=== PATIENT | female | born 1990 | race Caucasian/White ===

== ENCOUNTER → 2018-11-05 13:46 | Outpatient (CLI) | payer OTHER, SELFPAY ==
[2018-11-05 15:09] LABS: Absolute Lymphocyte Count 2.56 X10^3/ul (0.83-4.51); Absolute Neutrophil Count 3.8 X10^3/uL (2.0-7.7); Basophil# 0.02 X10^3/uL; Basophil% 0.3 % (0-1); Eosinophil# 0.47 X10^3/uL; Eosinophils% 6.3 % (0-5); Hematocrit 34.7 % (37-47); Hemoglobin 11.2 g/dl (12.0-15.0); Lymphocyte # 2.56 X10^3/ul (4.0); Lymphocyte % 34.5 % (19-41); Mean Corp Hgb Conc 32.3 g/gl (32-36); Mean Corpuscular Hgb 29.3 pg (27.0-32.0); Mean Corpuscular Volume 90.8 fL (81-99); Mean Platelet Vol. 10.5 fl (6.2-12.0); Monocyte# 0.53 X10^3/uL; Monocyte% 7.1 % (0-10); Neutrophil # 3.84 X10^3/uL (2.7-7.7); Neutrophil % 51.7 % (47-70); Platelet Count 314 K/mm3 (150-450); RBC Distribution Width CV 12.3 % (11.6-14.6); RBC Distribution Width SD 40.1 fl (35.1-43.9); Red Blood Count 3.82 M/mm3 (4.2-5.4); White Blood Count 7.4 K/mm3 (4.4-11.0)
[2018-11-05 15:12] LABS: POSITIVE COUNT NO; POSITIVE DIFFERENTIAL NO; POSITIVE MORPHOLOGY NO
[2018-11-05 15:39] LABS: ALB/GLOB Ratio 0.9 RATIO (0.9-2.4); AST(SGOT) 21 U/L (15-37); Alanine Aminotransfer ALT/SGPT 21 U/L (13-56); Albumin, Serum 3.6 g/dL (3.2-5.0); Alkaline Phosphatase 70 U/L (45-117); Anion Gap 9 (5-15); BUN 11 mg/dL (7-18); BUN/Creat Ratio 16.1 RATIO (10-20); Calcium,Total 8.8 mg/dL (8.5-10.1); Chloride 102 mmol/L (98-107); Creatinine, Serum 0.68 mg/dL (0.55-1.02); EST Glomerular Filtration Rate 109 mL/min (>60); Est Glom Filt Rate - Afr Amer 132 mL/min (>60); Glucose 98 mg/dL (74-106); Potassium 3.6 mmol/L (3.5-5.1); Protein, Total 7.6 g/dL (6.4-8.2); Sodium Level 136 mmol/L (136-145)
== END ==
PROVIDERS: Family Provider Family Medicine; PCP Family Medicine
DX: K62.5 Hemorrhage of anus and rectum (principal)
CPT/HCPCS: 36415; 80053; 85025

== ENCOUNTER → 2018-11-13 14:47 | Outpatient (CLI) | payer OTHER, SELFPAY ==
--- NOTE | 2018-11-13 14:52 | CT_ITS ---
STUDY: CT ABDOMEN AND PELVIS WITH CONTRAST REASON FOR EXAM: Female, 28 years old. Rectal bleeding for a couple of weeks RADIATION DOSAGE (If Supplied By Facility): CTDIvol = ( 7.84 ) mGy, DLP = ( 338.16 ) mGycm TECHNIQUE: Transaxial images were obtained from the dome of the diaphragm to the symphysis pubis without oral contrast. 100ml IV/Oral Isovue 300 was administered. Sagittal and coronal images were reconstructed. Individualized dose optimization techniques were used for this CT. COMPARISON: None. FINDINGS: The visualized lung bases are unremarkable. The visualized portions of the heart are within normal limits. Mild nonspecific fatty infiltration of liver without mass or bile duct dilatation.. Contracted thick-walled gallbladder without calcified stones possibly physiologic. Normal spleen. Normal pancreas. Normal bilateral adrenal glands. Normal right kidney. Normal left kidney. Normal visualized stomach. Normal small intestine. Diffuse fecal retention is noted within the colon.. There appears to be diffuse concentric thickening of the diaz of the rectum of uncertain etiology possibly due to nonspecific proctitis. The appendix is visualized and appears normal. Tiny benign-appearing pericecal nodes Normal abdominal aorta. Normal inferior vena cava. Normal retroperitoneum. Incompletely distended thick-walled bladder likely of no significance . There is air shadow within the vaginal vault likely representing temporal Minor cystic changes in the right ovary Normal abdominal wall. Normal osseous structures. CT/Abdomen/Pelvis WITH Contrast IMPRESSION: There appears to be nonspecific thickening of the diaz of the rectum which may be consistent with nonspecific proctitis. No evidence for small bowel obstruction.. Tagged red blood cell study may be useful for further evaluation if clinically warranted. Electronically Signed: Nils Aguila MD at 17:07 EDT , Service support ,
== END ==
PROVIDERS: Family Provider Family Medicine; PCP Family Medicine
DX: K62.5 Hemorrhage of anus and rectum (principal); D64.9 Anemia, unspecified
CPT/HCPCS: 74177; Q9967

== ENCOUNTER → 2019-06-05 14:18 | Outpatient (CLI) | payer OTHER, SELFPAY ==
[2019-06-05 10:12] VITALS: BMI 22.6
== END ==
PROVIDERS: Family Provider Family Medicine; PCP Family Medicine; Referring Provider Nurse Practitioner Family; Visit Provider Nurse Practitioner Family
DX: J02.9 Acute pharyngitis, unspecified (principal)
CPT/HCPCS: 87070; 87077

== ENCOUNTER → 2020-02-02 12:57 | Outpatient (CLI) | payer OTHER, SELFPAY ==
[2019-06-05 10:12] VITALS: BMI 22.6
[2020-02-02 13:13] LABS: Absolute Lymphocyte Count 2.36 X10^3/uL (0.83-4.51); Absolute Neutrophil Count 3.3 X10^3/uL (2.0-7.7); Basophil# 0.04 X10^3/uL; Basophil% 0.6 % (0-1); Hematocrit 35.5 % (37-47); Hemoglobin 11.2 g/dL (12.0-15.0); Lymphocyte # 2.36 X10^3/ul (4.0); Lymphocyte % 35.6 % (19-41); Mean Corp Hgb Conc 31.5 g/dL (32-36); Mean Corpuscular Hgb 30.4 pg (27.0-32.0); Mean Corpuscular Volume 96.2 fL (81-99); Mean Platelet Vol. 10.1 fl (6.2-12.0); Monocyte# 0.53 X10^3/uL; NRBC Flagged by Analyzer 0 % (0-5); Neutrophil # 3.28 X10^3/uL (2.7-7.7); Neutrophil % 49.6 % (47-70); Platelet Count 306 K/mm3 (150-450); RBC Distribution Width CV 12.1 % (11.6-14.6); RBC Distribution Width SD 42.4 fl (35.1-43.9); Red Blood Count 3.69 M/mm3 (4.2-5.4); White Blood Count 6.6 K/mm3 (4.4-11.0)
[2020-02-02 13:31] LABS: AST(SGOT) 19 U/L (15-37); Alanine Aminotransfer ALT/SGPT 21 U/L (13-56); Albumin, Serum 3.6 g/dL (3.2-5.0); Alkaline Phosphatase 69 U/L (45-117); Anion Gap 5 (5-15); BUN 11 mg/dL (7-18); CRP 5.73 mg/L (0.0-3.0); Calcium,Total 8.9 mg/dL (8.5-10.1); Chloride 103 mmol/L (98-107); Creatinine, Serum 0.65 mg/dL (0.55-1.02); EST Glomerular Filtration Rate 115 mL/min (>60); Est Glom Filt Rate - Afr Amer 139 mL/min (>60); Globulin 3.7 g/dL (2.2-4.2); Glucose 85 mg/dL (74-106); Potassium 3.7 mmol/L (3.5-5.1); Protein, Total 7.3 g/dL (6.4-8.2); Sodium Level 136 mmol/L (136-145)
== END ==
PROVIDERS: PCP Family Medicine
DX: K51.20 Ulcerative (chronic) proctitis without complications (principal)
CPT/HCPCS: 36415; 80053; 85025; 86140

== ENCOUNTER → 2021-02-28 08:58 | Outpatient (CLI) | payer OTHER, SELFPAY ==
[2019-06-05 10:12] VITALS: BMI 22.6
[2021-02-28 09:19] LABS: Absolute Lymphocyte Count 2.66 X10^3/uL (0.83-4.51); Absolute Neutrophil Count 3.3 X10^3/uL (2.0-7.7); Basophil# 0.02 X10^3/uL; Basophil% 0.3 % (0-1); Eosinophil# 0.34 X10^3/uL; Hematocrit 36.6 % (37-47); Hemoglobin 11.8 g/dL (12.0-15.0); Lymphocyte # 2.66 X10^3/ul (0.83-4.51); Lymphocyte % 39.3 % (19-41); Mean Corp Hgb Conc 32.2 g/dL (32-36); Mean Corpuscular Hgb 30.2 pg (27.0-32.0); Mean Corpuscular Volume 93.6 fL (81-99); Mean Platelet Vol. 10.3 fl (6.2-12.0); Monocyte# 0.44 X10^3/uL; Monocyte% 6.5 % (0-10); NRBC Flagged by Analyzer 0 % (0-5); Neutrophil # 3.29 X10^3/uL (2.7-7.7); Neutrophil % 48.8 % (47-70); Platelet Count 289 K/mm3 (150-450); RBC Distribution Width CV 12.3 % (11.6-14.6); RBC Distribution Width SD 42.5 fl (35.1-43.9); Red Blood Count 3.91 M/mm3 (4.2-5.4); White Blood Count 6.8 K/mm3 (4.4-11.0)
[2021-02-28 09:37] LABS: ALB/GLOB Ratio 0.9 RATIO (0.9-2.4); AST(SGOT) 16 U/L (15-37); Alanine Aminotransfer ALT/SGPT 22 U/L (13-56); Albumin, Serum 3.7 g/dL (3.2-5.0); Alkaline Phosphatase 66 U/L (45-117); Anion Gap 7 (5-15); BUN 16 mg/dL (7-18); BUN/Creat Ratio 23.4 RATIO (10-20); CRP 5.32 mg/L (0.0-3.0); Chloride 105 mmol/L (98-107); Creatinine, Serum 0.68 mg/dL (0.55-1.02); EST Glomerular Filtration Rate 107 mL/min (>60); Est Glom Filt Rate - Afr Amer 130 mL/min (>60); Ferritin 29 ng/mL (8-252); Globulin 3.9 g/dL (2.2-4.2); Glucose 79 mg/dL (74-106); Iron 113 ug/dL (50-170); Iron Binding Capacity,Total 463 ug/dL (250-450); Potassium 3.8 mmol/L (3.5-5.1); Protein, Total 7.6 g/dL (6.4-8.2); Sodium Level 138 mmol/L (136-145)
== END ==
PROVIDERS: PCP Family Medicine
DX: K62.5 Hemorrhage of anus and rectum (principal)
CPT/HCPCS: 36415; 80053; 82728; 83540; 83550; 85025; 86140

== ENCOUNTER → 2022-03-14 | Outpatient (CLI) | payer OTHER, SELFPAY ==
[2022-03-14 14:58] LABS: Absolute Lymphocyte Count 2.41 X10^3/uL (0.83-4.51); Absolute Neutrophil Count 5.8 X10^3/uL (2.0-7.7); Basophil# 0.03 X10^3/uL; Basophil% 0.3 % (0-1); Eosinophil# 0.12 X10^3/uL; Eosinophils% 1.3 % (0-5); Hematocrit 34.8 % (37-47); Hemoglobin 11.3 g/dL (12.0-15.0); Lymphocyte # 2.41 X10^3/ul (0.83-4.51); Lymphocyte % 26.9 % (19-41); Mean Corp Hgb Conc 32.5 g/dL (32-36); Mean Corpuscular Hgb 30.2 pg (27.0-32.0); Mean Platelet Vol. 10.1 fl (6.2-12.0); Monocyte% 6.7 % (0-10); NRBC Flagged by Analyzer 0 % (0-5); Neutrophil # 5.77 X10^3/uL (2.7-7.7); Neutrophil % 64.6 % (47-70); Platelet Count 284 K/mm3 (150-450); RBC Distribution Width CV 12.3 % (11.6-14.6); RBC Distribution Width SD 42.4 fl (35.1-43.9); Red Blood Count 3.74 M/mm3 (4.2-5.4)
[2022-03-14 15:28] LABS: ALB/GLOB Ratio 0.9 RATIO (0.9-2.4); AST(SGOT) 15 U/L (15-37); Alanine Aminotransfer ALT/SGPT 20 U/L (13-56); Albumin, Serum 3.5 g/dL (3.2-5.0); Alkaline Phosphatase 61 U/L (45-117); Anion Gap 3 (5-15); BUN 13 mg/dL (7-18); CRP 3.91 mg/L (0.0-3.0); Calcium,Total 9.3 mg/dL (8.5-10.1); Chloride 105 mmol/L (98-107); Creatinine, Serum 0.65 mg/dL (0.55-1.02); EST Glomerular Filtration Rate 113 mL/min (>60); Est Glom Filt Rate - Afr Amer 137 mL/min (>60); Glucose 98 mg/dL (74-106); Potassium 3.8 mmol/L (3.5-5.1); Protein, Total 7.5 g/dL (6.4-8.2); Sodium Level 137 mmol/L (136-145)
== END | disposition home or self-care (01) ==
PROVIDERS: PCP Family Medicine
DX: K51.20 Ulcerative (chronic) proctitis without complications (principal)
CPT/HCPCS: 36415; 80053; 85025; 86140

== ENCOUNTER → 2023-08-23 | Outpatient (CLI) | payer OTHER, SELFPAY ==
[2023-08-23 09:07] LABS: Absolute Lymphocyte Count 2.14 X10^3/uL (0.83-4.51); Absolute Neutrophil Count 2.4 X10^3/uL (2.0-7.7); Basophil# 0.04 X10^3/uL; Basophil% 0.8 % (0-1); Eosinophil# 0.28 X10^3/uL; Eosinophils% 5.3 % (0-5); Hematocrit 37.3 % (37-47); Hemoglobin 12.1 g/dL (12.0-15.0); Lymphocyte # 2.14 X10^3/ul (0.83-4.51); Lymphocyte % 40.7 % (19-41); Mean Corp Hgb Conc 32.4 g/dL (32-36); Mean Corpuscular Hgb 29.7 pg (27.0-32.0); Mean Corpuscular Volume 91.6 fL (81-99); Mean Platelet Vol. 10.2 fl (6.2-12.0); Monocyte% 7.6 % (0-10); NRBC Flagged by Analyzer 0 % (0-5); Neutrophil # 2.39 X10^3/uL (2.7-7.7); Neutrophil % 45.4 % (47-70); Platelet Count 273 K/mm3 (150-450); RBC Distribution Width CV 12.1 % (11.6-14.6); RBC Distribution Width SD 40.8 fl (35.1-43.9); Red Blood Count 4.07 M/mm3 (4.2-5.4); White Blood Count 5.3 K/mm3 (4.4-11.0)
[2023-08-23 09:27] LABS: AST(SGOT) 15 U/L (15-37); Alanine Aminotransfer ALT/SGPT 19 U/L (13-56); Albumin, Serum 3.8 g/dL (3.2-5.0); Alkaline Phosphatase 64 U/L (45-117); Anion Gap 4 (5-15); BUN 19 mg/dL (7-18); BUN/Creat Ratio 27.4 RATIO (10-20); CRP < 2.90 mg/L (0.0-3.0); Calcium,Total 9.4 mg/dL (8.5-10.1); Chloride 109 mmol/L (98-107); Creatinine, Serum 0.69 mg/dL (0.55-1.02); EST Glomerular Filtration Rate 104 mL/min (>60); Est Glom Filt Rate - Afr Amer 126 mL/min (>60); Globulin 3.8 g/dL (2.2-4.2); Glucose 96 mg/dL (74-106); Protein, Total 7.6 g/dL (6.4-8.2); Sodium Level 138 mmol/L (136-145)
== END | disposition home or self-care (01) ==
PROVIDERS: PCP Family Medicine
DX: K51.20 Ulcerative (chronic) proctitis without complications (principal); Z51.81 Encounter for therapeutic drug level monitoring
CPT/HCPCS: 36415; 80053; 85025; 86140

== ENCOUNTER → 2024-08-10 | Outpatient (CLI) | payer OTHER, SELFPAY ==
[2024-08-10 14:10] LABS: Absolute Lymphocyte Count 1.83 X10^3/uL (0.83-4.51); Basophil# 0.04 X10^3/uL; Basophil% 0.6 % (0-1); Eosinophil# 0.16 X10^3/uL; Eosinophils% 2.5 % (0-5); Hematocrit 37.7 % (37-47); Hemoglobin 12.2 g/dL (12.0-15.0); Lymphocyte # 1.83 X10^3/ul (0.83-4.51); Lymphocyte % 28.2 % (19-41); Mean Corp Hgb Conc 32.4 g/dL (32-36); Mean Corpuscular Hgb 29.8 pg (27.0-32.0); Mean Corpuscular Volume 92.2 fL (81-99); Mean Platelet Vol. 10.1 fl (6.2-12.0); Monocyte# 0.41 X10^3/uL; Monocyte% 6.3 % (0-10); NRBC Flagged by Analyzer 0 % (0-5); Neutrophil # 4.02 X10^3/uL (2.7-7.7); Neutrophil % 62.1 % (47-70); Platelet Count 281 K/mm3 (150-450); RBC Distribution Width CV 12.5 % (11.6-14.6); RBC Distribution Width SD 42.9 fl (35.1-43.9); Red Blood Count 4.09 M/mm3 (4.2-5.4); White Blood Count 6.5 K/mm3 (4.4-11.0)
== END | disposition home or self-care (01) ==
PROVIDERS: PCP Family Medicine
DX: R23.3 Spontaneous ecchymoses (principal)
CPT/HCPCS: 36415; 85025

== ENCOUNTER 2024-11-28 11:48 | Emergency (ER) | payer OTHER, SELFPAY ==
[2024-11-28 11:49] VITALS: BP 144/75; PULSE 78; RESP 16; TEMP 36.7; O2SAT 100; BMI 22.1
--- NOTE | 2024-11-28 11:57 | EX.ED.GENINJ ---
HPI <MITRA Henderson - Last Filed: 11/28/24 12:52> History of Present Illness Chief Complaint: Laceration Narrative Narrative: 34-year-old female was using a knife to remove an avocado pit when she accidentally cut her left thumb. She controlled the bleeding with direct pressure but presents for wound repair. No weakness numbness or tingling. Tetanus is up-to-date as of 1 year ago. PFSH <MITRA Henderson - Last Filed: 11/28/24 12:52> PFSH Home Medications ?Medication ?Instructions ?Recorded ?Last Taken ?Type drospirenone 3 mg-ethinyl 1 tab PO DAILY 06/05/19 Unknown History estradiol 0.03 mg tablet (Ocella) loratadine 10 mg tablet (Claritin) 10 mg PO DAILY 06/05/19 Unknown History mesalamine 1.2 gram tablet,delayed 4.8 g PO DAILY 11/28/24 Unknown History release Allergy/AdvReac Type Severity Reaction Status Date / Time No Known Allergies Allergy Verified 11/28/24 11:49 Family History Father Pancreatic cancer A-fib Social History Smoking Status: Never smoker alcohol intake: current alcohol intake frequency: a few times a month ROS <MITRA Henderson - Last Filed: 11/28/24 12:52> ROS ED ROS Narrative Neuro: Negative for motor/sensory dysfunction. Skin: Positive for laceration. Musc: Negative for joint pain. EXAM <MITRA Henderson - Last Filed: 11/28/24 12:52> Physical Exam Narrative Exam Narrative: CONST: Patient sitting in no acute distress. EYES: Normal inspection. SKIN: 2 cm linear laceration left volar radial aspect of the thumb to the subcutaneous tissue. No joint or tendon involvement. EXTREMITIES: Full range of motion of left thumb and digits, normal motor and sensory function in median radial and ulnar distributions, 2+ radial pulse and brisk cap refill. 2 point discrimination intact. NEURO: Alert and answering questions appropriately. PSYCH: Normal affect. Const Vital Signs: 11/28/24 11:49 11/28/24 12:26 Temperature 98.0 F 98.0 F Temperature Source Oral Pulse Rate 78 78 Respiratory Rate 16 16 Blood Pressure 144/75 H 144/75 H Blood Pressure Mean 98 98 Pulse Ox 100 100 Oxygen Delivery Method Room Air <Dr. Ezequiel Broderick MD - Last Filed: 11/28/24 13:00> Physical Exam Const Vital Signs: 11/28/24 11:49 11/28/24 12:26 Temperature 98.0 F 98.0 F Temperature Source Oral Pulse Rate 78 78 Respiratory Rate 16 16 Blood Pressure 144/75 H 144/75 H Blood Pressure Mean 98 98 Pulse Ox 100 100 Oxygen Delivery Method Room Air PROC <MITRA Henderson - Last Filed: 11/28/24 12:52> Procedures Lacerations Left thumb: Length: 0.79 in Depth: Sub Q Shape: Linear Prep: Sterile Conditions Laceration repair: Irrigated, Lidocaine and Local Number of Sutures/[place]: 4 Suture Information: Ethilon and 5-0 Comment: After suture placement wound still slowly oozing and was covered with bacitracin and compressive bandage. MDM <MITRA Henderson - Last Filed: 11/28/24 12:52> [facility] Narrative Medical decision making narrative: 2 cm laceration left lateral thumb from a knife. She is neurovascularly intact. There is no tendon injury. Her tetanus was updated 1 year ago. Wound was repaired with 4 sutures. See procedure note. She was discharged in stable condition. I have personally performed a face to face assessment of the patient and have reviewed the [place] Note. I performed a substantive portion of the visit including all aspects of the following. My tan findings include: History is remarkable for laceration to the volar radial side of her left thumb. She denies paresthesia, anesthesia motors. She was removing a pit from a avocado. She states the pit broke. Exam is remarkable for a linear laceration volar radial side of the left thumb. The extensor and flexor mechanism intact. There is no laxity with stressing of the collateral ligaments of the IP joint. To point squamation is normal. Capillary fill is normal. Medical Decision Making plan is anesthetize thumb and suture. This performed by the physician technical services assistant. Other additions or changes: [None] <Dr. Ezequiel Broderick MD - Last Filed: 11/28/24 13:00> [facility] Narrative Medical decision making narrative: I have personally performed a face to face assessment of the patient and have reviewed the [place] Note. I performed a substantive portion of the visit including all aspects of the following. My tan findings include: History is remarkable for laceration to the volar radial side of her left thumb. She denies paresthesia, anesthesia motors. She was removing a pit from a avocado. She states the pit broke. Exam is remarkable for a linear laceration volar radial side of the left thumb. The extensor and flexor mechanism intact. There is no laxity with stressing of the collateral ligaments of the IP joint. To point squamation is normal. Capillary fill is normal. Medical Decision Making plan is anesthetize thumb and suture. This reformed by the physician technical services assistant. Other additions or changes: [None] Discharge Plan Triage Chief Complaint: Laceration ED Midlevel Provider: Ema Ferguson ED Provider: Ezequiel Broderick Dx/Rx/DC Orders Clinical Impression: Laceration of left thumb, Elevated blood-pressure reading without diagnosis of hypertension Instructions: ED Laceration Extremity Prescriptions: No Action drospirenone-ethinyl estradiol [Ocella] 3-0.03 mg tablet 1 tab PO DAILY loratadine [Claritin] 10 mg tablet 10 mg PO DAILY mesalamine 1.2 gram tablet,delayed release (DR/EC) 4.8 g PO DAILY Primary Care Provider: TOÑITO PERERA Referrals: Panda Rodriguez MD [Non-Staff] - Activity Restrictions/Additional Instructions: Stitches need removed in 1 week. Be seen immediately if you develop signs of infection like redness, swelling, pus, increased pain or fever. Print Language: Kiswahili Disposition Disposition: Home, Self Care Discharge Date/Time: 11/28/24 12:27
[2024-11-28] MEDS: Lidocaine 1% (20 ml mdv) 20 ML Vial INFILT (12:12)
[2024-11-28 12:26] VITALS: BP 144/75; PULSE 78; RESP 16; TEMP 36.7; O2SAT 100
== END 2024-11-28 12:27 | disposition home or self-care (01) ==
LOC: ED 12:10
PROVIDERS: Emergency Provider Emergency Medicine; Visit Provider Emergency Medicine
DX: S61.012A Laceration without foreign body of left thumb without damage to nail, initial encounter (principal); W26.0XXA Contact with knife, initial encounter; R03.0 Elevated blood-pressure reading, without diagnosis of hypertension
CPT/HCPCS: 12001; 99283

== ENCOUNTER → 2025-01-25 | Outpatient (CLI) | payer OTHER, SELFPAY | END | disposition home or self-care (01) | LOC: MTRAD 08:55 | PROVIDERS: Referring Provider Chiropractor; Visit Provider Chiropractor | DX: M54.9 Dorsalgia, unspecified (principal) | CPT/HCPCS: 72110 ==

== ENCOUNTER → 2025-03-02 | Outpatient (CLI) | payer OTHER, SELFPAY ==
--- NOTE | 2025-03-02 17:11 | CT_ITS ---
PROCEDURE: ABDOMEN WITH IV CONTRAST 03/02/2025 REASON FOR EXAM: CALCIFICATIONS IN L UPPER QUADRANT TECHNIQUE: ABDOMEN WITH IV CONTRAST. Multiplanar Sagittal and Coronal images were obtained. One or more dose reduction techniques were used (e.g., Automated exposure control, adjustment of the mA and/or kV according to patient size, use of iterative reconstruction technique. CONTRAST: Isovue 300 VOLUME: 85 mL RADIATION DOSE SUMMARY: CTDlvol: 14 mGy DLP: 272 mGycm COMPARISON: 11/13/[address], 01/25/2025 lumbar spine exam FINDINGS: Lung bases are clear. Normal heart size. Unremarkable liver, gallbladder, pancreas,, adrenal glands,. No hydronephrosis. No retroperitoneal adenopathy. No free air. Nonobstructed bowel. Thoracic cage deformity recently noted left upper abdominal calcification is a costal cartilage calcification, series 2, image 36, no clinical significance. CT/Abdomen WITH IV Contrast IMPRESSION: Benign costal cartilage calcification accounts for the recent lumbar spine find ings. Reading Location: [place] [id number]
== END | disposition home or self-care (01) ==
LOC: CT 17:08
PROVIDERS: Referring Provider Chiropractor; Visit Provider Chiropractor
DX: M54.9 Dorsalgia, unspecified (principal)
CPT/HCPCS: 74160; Q9967